=== PATIENT | female | born 1975 | race Caucasian/White ===

== ENCOUNTER 2024-10-06 08:09 | Emergency (ER) | payer OTHER, SELFPAY ==
--- NOTE | 2024-10-06 08:20 | ED_ITS ---
HPI - URI/Sore Throat General Chief Complaint: Upper Respiratory Infection Stated Complaint: sorethroat, bodyaches Time Seen by Provider: 10/06/24 08:19 Source: patient Mode of arrival: ambulatory Limitations: no limitations History of Present Illness HPI Narrative: Mee is a 49-year-old female patient presenting to the clinic today with complaints of sore throat, runny nose, and body aches since last night. She reports has had exposure to RSV and influenza. Denies any fevers but has had some chills. Denies any chest pain or shortness of breath. MD elicited complaint: sore throat, rhinorrhea and other Related Data Home Medications ?Medication ?Instructions ?Recorded ?Confirmed ?Last Taken ?Type fluoxetine 20 mg capsule mg 10/06/24 Unknown History propranolol 40 mg tablet mg 10/06/24 Unknown History Allergies Allergy/AdvReac Type Severity Reaction Status Date / Time vanilla extract flavor Allergy Intermediate Swelling Verified 10/06/24 08:39 of Lip/Tongue/Throat Review of Systems Review of Systems: Pertinent positives per HPI. Patient denies any fever, chills, rash, headache, visual changes, dizziness, cough, shortness of breath, chest pain, palpitations, nausea, vomiting, diarrhea, constipation, abdominal pain, or any urinary issues. PMFSH Comments At the time of my signature, I reviewed and agree with the nursing past medical, surgical, social, and family history. There is no relevant family history pertinent to the patient complaint. Exam Narrative: General: Well-developed, obese, in no apparent distress Head: Normocephalic, atraumatic Eyes: Pupils equally round and reactive to light bilaterally, EOM intact, sclera and conjunctive clear, no discharge, lids normal Ears: TMs intact and clear, ear canals clear, no drainage, grossly hearing normal. Nose: Nares patent, clear discharge, no inflammation, no sinus tenderness. Mouth: Oral pharynx mildly red without lesions or masses, good dentition, MMM. Postnasal drip Neck: Supple, trachea midline, no enlargement of anterior or posterior cervical nodes, no thyroid masses or goiter palpable. Cardio: Regular rate and rhythm, s1 and s2 normal, no murmur appreciated. Resp: Clear to auscultation bilaterally, no rhonchi, rales, wheezing or rubs Course Course Emergency Course: Portions of this record may have been created with voice recognition software. Level of Care: Express Care Visit Vital Signs Vital signs: Vital signs reviewed MDM - URI/Sore Throat MDM Narrative Medical decision making narrative: At the time of visit patient is resting comfortably on the exam table. Patient appears to be nontoxic. Labs: COVID, influenza, and strep test all performed. All testing was negative. We will send strep for culture. Plan: I suspect patient has URI/pharyngitis. Her symptoms just started last night. Discussed that it may be too early for her testing to be-positive due to the symptoms starting last night. Supportive measures were discussed with the patient and they voiced understanding discharge instructions and agrees to treatment plan. Return precautions reviewed Differential Diagnosis Differential diagnosis: Likely upper respiratory infection, otitis media, sinusitis, viral infection, bronchitis, influenza, pharyngitis and other (COVID) Discharge Plan Discharge Clinical Impression: Pharyngitis Qualifiers: Pharyngitis/tonsillitis etiology: unspecified etiology Qualified Code(s): J02.9 - Acute pharyngitis, unspecified Upper respiratory infection Qualifiers: URI type: unspecified URI Qualified Code(s): J06.9 - Acute upper respiratory infection, unspecified Patient Disposition: Home, Self-Care Condition: Stable Instructions: Antibiotic Form, Pharyngitis (ED), Upper Respiratory Infection (ED) Additional Instructions: COVID, influenza, and strep test were all negative in the clinic today. We will send strep for culture and if this comes back positive we will contact you and place you on antibiotics at that time. Increase fluids and stay well hydrated Tylenol/motrin for pain/fever Flonase and OTC antihistamines as directed Vicks vapor rub to open sinuses Sinus rinses for congestion Cepacol spray, cough drops, throat lozenges, warm tea with honey/lemon, gargle salt water to soothe throat BRAT diet for diarrhea Clear liquids x 24 hours then advance as tolerated for nausea/vomiting Go to the ED if you develop a worsening in your condition- high fever not controlled by Tylenol or Motrin, dehydration, weakness, lethargy, shortness of breath, or chest pain. Follow up with your PCP in 3-5 days if symptoms persist. Patient Language: [place] Prescriptions: No Action propranolol 40 mg tablet fluoxetine 20 mg capsule Follow-up/Referrals: Marvel,JULITO Sow [Primary Care Provider] - Time of Disposition: 08:48 Quality NIHSS Nursing Documentation ED NIHSS nursing documentation: reviewed/agree
[2024-10-06 08:38] VITALS: BP 117/74; PULSE 100; RESP 18; TEMP 37.1; O2SAT 97
[2024-10-06 08:51] LABS: EDSTREPNEGPOS1 Negative (Negative)
[2024-10-06 08:58] LABS: EDCOVIDSCREEN Negative (Negative); EDINFLUASCREEN Negative (Negative); EDINFLUBSCREEN Negative (Negative)
--- OUTSIDE RECORDS SUMMARY | 2024-10-08 16:05 | XMS_ITS | Data Portability ---
Author Organization [place] - [facility], Byron Reyes Address [address] [place] [address] Care Team Providers Care [employer] Worker Name Role Phone PAULA PIERSON Primary Care Provider Unavailabl e Assessment Encounter Date Assessment Date Assessment LastModified by Organization Details LastModified Time 05/05/2024 05/05/2024 Patient tolerate d treatment well today. Treatment Plan: It is recommended that the patient receive care professionals 2 times per month for 2 months receiving spinal adjustments, heat therapy, and manual therapy. If doing well at that time will move to monthly for 2 months. The patient will benefit from care professionals and supporting therapies to conservatively manage pain and help facilitate a return to max functional capability. The patient's progress is dependent on patient compliance regarding home therapies and following the recommended treatment plan. Prognosis: Good Co-Treatment: PCP: Paula Pierson MD MT: Referred back on 01/20/24 for Full Sp Tension PT: Referred for lower back stabilization on 01/20/24 Imaging: N/A Contraindications : None Patient Treatment Preference: Impulse to C/S Visit Count: 5/6 Not available 05/05/2024 09:54:53 05/21/2024 05/21/2024 Patient tolerate d treatment well today. Treatment Plan: It is recommended that the patient receive care professionals 1 time per 3 weeks for steadily decreasing frequency to monthly. Patient is to receive spinal adjustments and manual therapy. The patient will benefit from care professionals and supporting therapies to conservatively manage pain and help facilitate a return to max functional capability. The patient's progress is dependent on patient compliance regarding home therapies and following the recommended treatment plan. Prognosis: Good Co-Treatment: PCP: Paula Pierson MD MT: Referred back on 01/20/24 for Full Sp Tension PT: Referred for lower back stabilization on 01/20/24 Imaging: N/A Contraindications : None Patient Treatment Preference: Impulse to C/S Visit Count: 0 Not available 05/21/2024 09:51:03 06/11/2024 06/11/2024 Patient tolerate d treatment well today. Treatment Plan: It is recommended that the patient receive care professionals 1 time per 3 weeks for steadily decreasing frequency to monthly. Patient is to receive spinal adjustments and manual therapy. The patient will benefit from care professionals and supporting therapies to conservatively manage pain and help facilitate a return to max functional capability. The patient's progress is dependent on patient compliance regarding home therapies and following the recommended treatment plan. Prognosis: Good Co-Treatment: PCP: Paula Pierson MD MT: Referred back on 01/20/24 for Full Sp Tension PT: Referred for lower back stabilization on 01/20/24 Imaging: N/A Contraindications : None Patient Treatment Preference: Impulse to C/S Visit Count: 09/27 [email or web address] Not available 06/11/2024 09:54:47 07/02/2024 07/02/2024 Patient tolerate d treatment well today. Treatment Plan: It is recommended that the patient receive care professionals 2 times per 3 weeks due to injury on 06/27/24 lifting weights. Patient to receive spinal adjustments, manual therapy, and heat/IFC. The patient will benefit from care professionals and supporting therapies to conservatively manage pain and help facilitate a return to max functional capability. The patient's progress is dependent on patient compliance regarding home therapies and following the recommended treatment plan. Prognosis: Good Co-Treatment: PCP: Paula Pierson MD MT: Referred back on 01/20/24 for Full Sp Tension PT: Referred for lower back stabilization on 01/20/24 Imaging: N/A Contraindications : None Patient Treatment Preference: Impulse to C/S Visit Count: 0 [email or web address] Not available 07/02/2024 11:05:22 07/06/2024 07/06/2024 Patient tolerate d treatment well today. Treatment Plan: It is recommended that the patient receive care professionals 2 times per 3 weeks due to injury on 06/27/24 lifting weights. Patient to receive spinal adjustments, manual therapy, and heat/IFC. The patient will benefit from care professionals and supporting therapies to conservatively manage pain and help facilitate a return to max functional capability. The patient's progress is dependent on patient compliance regarding home therapies and following the recommended treatment plan. Prognosis: Good Co-Treatment: PCP: Paula Pierson MD MT: Referred back on 01/20/24 for Full Sp Tension PT: Referred for lower back stabilization on 01/20/24 Imaging: N/A Contraindications : None Patient Treatment Preference: Impulse to C/S Visit Count: 09/21 [email or web address] Not available 07/06/2024 16:42:47 Plan of Treatment Reminders Order Date Submit Date Provider Last Modified By Organization Details Last Modified Time Details Appointments InPerson ; PE, Routine 2024 10:00A M Paula Pierson MD Not available Not available Not available Lab None recorded . Referral None recorded . Procedures None recorded . Surgeries None recorded . Imaging None recorded . Medication Orders None recorded . Patient Targets Encounter Date Encounter Id Patient Goals Patient Target Last Modified By Organization Details Last Modified Time 05/05/2024 [id number] terminologist goal of HEP Compliance Compliance with HEP provided by DC. Compliance with presenting for care as recommended by DC Not available Not available Not available terminologist goal of Pain Not available Not available Not available Pain Decrease LBP by 50% by next eval. Not available Not available Not available 05/21/2024 [id number] terminologist goal of HEP Compliance Compliance with HEP provided by DC. Compliance with presenting for care as recommended by DC Not available Not available Not available Pain Decrease LBP by 50% by next eval. Not available Not available Not available 06/11/2024 [id number] [facility] goal of HEP Compliance Compliance with HEP provided by DC. Compliance with presenting for care as recommended by DC Not available Not available Not available Pain Decrease LBP by 50% by next eval. Not available Not available Not available 07/02/2024 [id number] [facility] goal of HEP Compliance Compliance with HEP provided by DC. Compliance with presenting for care as recommended by DC Not available Not available Not available Pain Decrease LBP by 50% by next eval. Not available Not available Not available [facility] goal of Modified Oswestry Back Index (TESSA): Score on the Modified Oswestry Low Back Disability Index (TESSA) Decrease TESSA raw score to 10 or lower following injury on 06/27/24 Not available Not available Not available 07/06/2024 [id number] [facility] goal of HEP Compliance Compliance with HEP provided by DC. Compliance with presenting for care as recommended by DC Not available Not available Not available Pain Decrease LBP by 50% by next eval. Not available Not available Not available [facility] goal of Modified Oswestry Back Index (TESSA): Score on the Modified Oswestry Low Back Disability Index (TESSA) Decrease TESSA raw score to 10 or lower following injury on 06/27/24 Not available Not available Not available Patient Instructions Encounter Date Encounter Id Patient Instructions Last Modified By Organization Details Last Modified Time 05/05/2024 [id number] Access Code: [email or web address] URL: [email or web address] Date: 12/26/2023 Prepared by: Michele Terrell Exercises - Supine Single Knee to Chest Stretch - 5 x daily - 7 x weekly - 15-20secs hold - Supine Double Knee to Chest - 5 x daily - 7 x weekly - 15-20secs hold - Seated Flexion Stretch - 5 x daily - 7 x weekly - 15-20secs hold - Standing Forward Trunk Flexion - 5 x daily - 7 x weekly - 15-20secs hold - Supine Hamstring Stretch with Doorway - 5 x daily - 7 x weekly - 15-20secs hold - Standing Quadratus Lumborum Stretch with Doorway - 5 x daily - 7 x weekly - 15-20 hold Patient Education - Acute L/S Handout ? Ice up to 20 minutes at a time each with at least a 40-minute break in between. Place upon low back area with cloth between skin and pack. ? Avoid sitting or standing still for over 30 minutes at a time. ? Take time to walk around every 30 minutes ? When sitting avoid soft couches/recliners ? Perform Cat/Camel Exercises 10 reps 3x per day [email or web address] Not available 05/05/2024 09:31:07 05/21/2024 [id number] Access Code: [email or web address] URL: [email or web address] Date: 12/26/2023 Prepared by: Michele Terrell Exercises - Supine Single Knee to Chest Stretch - 5 x daily - 7 x weekly - 15-20secs hold - Supine Double Knee to Chest - 5 x daily - 7 x weekly - 15-20secs hold - Seated Flexion Stretch - 5 x daily - 7 x weekly - 15-20secs hold - Standing Forward Trunk Flexion - 5 x daily - 7 x weekly - 15-20secs hold - Supine Hamstring Stretch with Doorway - 5 x daily - 7 x weekly - 15-20secs hold - Standing Quadratus Lumborum Stretch with Doorway - 5 x daily - 7 x weekly - 15-20 hold Patient Education - Acute L/S Handout ? Ice up to 20 minutes at a time each with at least a 40-minute break in between. Place upon low back area with cloth between skin and pack. ? Avoid sitting or standing still for over 30 minutes at a time. ? Take time to walk around every 30 minutes ? When sitting avoid soft couches/recliners ? Perform Cat/Camel Exercises 10 reps 3x per day [email or web address] Not available 05/21/2024 09:33:34 06/11/2024 [id number] Access Code: [email or web address] URL: [email or web address] Date: 12/26/2023 Prepared by: Michele Terrell Exercises - Supine Single Knee to Chest Stretch - 5 x daily - 7 x weekly - 15-20secs hold - Supine Double Knee to Chest - 5 x daily - 7 x weekly - 15-20secs hold - Seated Flexion Stretch - 5 x daily - 7 x weekly - 15-20secs hold - Standing Forward Trunk Flexion - 5 x daily - 7 x weekly - 15-20secs hold - Supine Hamstring Stretch with Doorway - 5 x daily - 7 x weekly - 15-20secs hold - Standing Quadratus Lumborum Stretch with Doorway - 5 x daily - 7 x weekly - 15-20 hold Patient Education - Acute L/S Handout ? Ice up to 20 minutes at a time each with at least a 40-minute break in between. Place upon low back area with cloth between skin and pack. ? Avoid sitting or standing still for over 30 minutes at a time. ? Take time to walk around every 30 minutes ? When sitting avoid soft couches/recliners ? Perform Cat/Camel Exercises 10 reps 3x per day [email or web address] Not available 06/11/2024 09:33:17 07/02/2024 [id number] Access Code: [email or web address] URL: [email or web address] Date: 12/26/2023 Prepared by: Michele Terrell Exercises - Supine Single Knee to Chest Stretch - 5 x daily - 7 x weekly - 15-20secs hold - Supine Double Knee to Chest - 5 x daily - 7 x weekly - 15-20secs hold - Seated Flexion Stretch - 5 x daily - 7 x weekly - 15-20secs hold - Standing Forward Trunk Flexion - 5 x daily - 7 x weekly - 15-20secs hold - Supine Hamstring Stretch with Doorway - 5 x daily - 7 x weekly - 15-20secs hold - Standing Quadratus Lumborum Stretch with Doorway - 5 x daily - 7 x weekly - 15-20 hold Patient Education - Acute L/S Handout ? Ice up to 20 minutes at a time each with at least a 40-minute break in between. Place upon low back area with cloth between skin and pack. ? Avoid sitting or standing still for over 30 minutes at a time. ? Take time to walk around every 30 minutes ? When sitting avoid soft couches/recliners ? Perform Cat/Camel Exercises 10 reps 3x per day [email or web address] Not available 07/02/2024 09:49:07 07/06/2024 [id number] Access Code: [email or web address] URL: [email or web address] Date: 12/26/2023 Prepared by: Michele Terrell Exercises - Supine Single Knee to Chest Stretch - 5 x daily - 7 x weekly - 15-20secs hold - Supine Double Knee to Chest - 5 x daily - 7 x weekly - 15-20secs hold - Seated Flexion Stretch - 5 x daily - 7 x weekly - 15-20secs hold - Standing Forward Trunk Flexion - 5 x daily - 7 x weekly - 15-20secs hold - Supine Hamstring Stretch with Doorway - 5 x daily - 7 x weekly - 15-20secs hold - Standing Quadratus Lumborum Stretch with Doorway - 5 x daily - 7 x weekly - 15-20 hold Patient Education - Acute L/S Handout ? Ice up to 20 minutes at a time each with at least a 40-minute break in between. Place upon low back area with cloth between skin and pack. ? Avoid sitting or standing still for over 30 minutes at a time. ? Take time to walk around every 30 minutes ? When sitting avoid soft couches/recliners ? Perform Cat/Camel Exercises 10 reps 3x per day [email or web address] Not available 07/06/2024 14:50:03 Reason for Referral None Reported. Problems Name Problem SNOMED Code Status Onset Date Resolution Date Notes Provider Name and Address Organization Details Recorded Time Abnormal cervical Papanico laou smear [id number] Rico Pierson MD [address], [place], [address] , [place] [facility] 4 13:26:11 Pain in elbow [id number] Rico Pierson MD [address], [place], [address] , [place] [facility] 4 13:26:19 Generali zed anxiety disorder [id number] Rico Pierson MD [address], [place], [address] , [place] [facility] 4 13:26:28 Gastroes ophageal reflux disease without esophagi tis [id number] Rico Pierson MD [address], [place], [address] , [place] [facility] 4 13:26:37 Herpes simplex [id number] Rico Pierson MD [address], [place], [address] , [place] [facility] 4 13:26:44 [facility] hyperten prisca [id number] Rico Pierson MD [address], [place], [address] , [place] [facility] 4 13:26:51 Chronic back pain [id number] Rico Pierson MD [address], [place], [address] , [place] [facility] 4 13:27:49 Pain in right hip joint [id number] 9102 Rico Pierson MD [address], [place], [address] , [place] [facility] 4 13:27:59 History of augmenta tion of breast [id number] Rico Pierson MD [address], [place], [address] , [place] [facility] 4 13:28:13 Allergic rhinitis 55683220 Active Paula Pierson MD [address], [place], [address] , [place] - [facility] 4 13:33:34 Migraine 70682526 Active Paula Pierson MD [address], [place], [address] , [place] - [facility] 4 13:33:41 Low back pain 904003885 Active 2023 MICHELE TERRELL DC [address], [place], [address] , [place] - [facility] 4 12:07:53 Cervical segmenta l dysfunct ion 995653444 Active 2023 MICHELE TERRELL DC [address], [place], [address] , [place] - [facility] 4 13:59:10 Thoracic segmenta l dysfunct ion 635248541 Active 2023 MICHELE TERRELL DC [address], [place], [address] , [place] - [facility] 4 13:59:14 Segmenta l and somatic dysfunct ion 117562321 Active 2022 Segmenta l and somatic dysfunct ion; PROBABIL ITY: 0 Confir mation: Confirme d Annota tedDispl ay: Segmenta l and somatic dysfunct ion of lumbar region C lassific ation: Medical Not Available [facility] 4 17:35:23 Adjustme nt disorder with anxious mood 72632600 Completed 201901/02/2024 Adjustme nt disorder with anxious mood; PROBABIL ITY: 0 SENSIT IVITY: 0.0 Conf irmation : Confirme d cancel Reason: Annotat edDispla y: Adjustme nt disorder with anxiety Classifi cation: Medical [facility] eDateTim e: 15:07:57 +00:00 Not Available [facility] 4 17:35:23 Elbow joint pain 265733900 Completed 202201/02/2024 Elbow joint pain; PROBABIL ITY: 0 Confir mation: Confirme d Annota tedDispl ay: Bilatera l elbow joint pain Cla ssificat ion: Medical Not Available [facility] 4 17:35:24 Pain in thoracic spine 765689180 Active 2022 Pain in thoracic spine; PROBABIL ITY: 0 SENSIT IVITY: 0.0 Conf irmation : Confirme d Annota tedDispl ay: Thoracic spine pain Cla ssificat ion: Medical Lif[facility] eDateTim e: 15:39:00 +00:00 Not Available [facility] 4 17:35:24 Augmenta tion mammopla sty Completed 202101/02/2024 Breast augmenta tion; PROBABIL ITY: 0 Confir mation: Confirme d Annota tedDispl ay: Breast augmenta tion Cla ssificat ion: Medical Not Available [facility] 4 17:35:24 [place] ht [id number] Completed 202001/02/2024 Overweig ht; PROBABIL ITY: 0 SENSIT IVITY: 0.0 Conf irmation : Confirme d cancel Reason: Annotat edDispla y: [place] ht Class ificatio n: Medical Lif[facility] eDateTim e: 14:57:53 +00:00 Not Available [facility] 4 17:35:24 Neck pain 54077349 Active 2022 Neck pain; PROBABIL ITY: 0 SENSIT IVITY: 0.0 Conf irmation : Confirme d Annota tedDispl ay: Cervical saray Clas sificati on: Medical [facility] eDateTim e: 15:39:00 +00:00 Not Available [facility] 4 17:35:24 Obesity 790187474 Active 2018 Obesity; PROBABIL ITY: 0 Confir mation: Probable Annotat edDispla y: Obesity Classifi cation: Medical Lifec[facility] eDateTim e: 17:00:00 +00:00 Not Available [facility] 4 17:35:24 Segmenta l dysfunct ion 87881467 Active 2022 Segmenta l dysfunct ion; PROBABIL ITY: 0 SENSIT IVITY: 0.0 Conf irmation : Confirme d Annota tedDispl ay: Segmenta l dysfunct ion of pelvic region C lassific ation: Medical Lifecycl [facility] e: 15:39:00 +00:00 Not Available [facility] 4 17:35:24 Body odor problem [id number] Completed 202201/02/2024 Body odor problem; PROBABIL ITY: 0 SENSIT IVITY: 0.0 Conf irmation : Confirme d Annota tedDispl ay: Body odor Cla ssificat ion: Medical [facility] e: 14:04:47 +00:00 Not Available [facility] 4 17:35:25 Gastroes ophageal reflux disease 839983884 Completed 202001/02/2024 GERD - Gastro-e sophagea l reflux disease; PROBABIL ITY: 0 Confir mation: Confirme d Annota tedDispl ay: GERD - Gastro-e sophagea l reflux disease Classifi cation: Medical Gastroes ophageal reflux disease; PROBABIL ITY: 0 SENSIT IVITY: 0.0 Conf irmation : Confirme d Annota tedDispl ay: GERD (gastroe sophagea l reflux disease) Classif ication: Medical Lifec[facility] e: 22:57:00 +00:00; Start Date : 09/01/20 19 Not Available [facility] 4 17:35:25 Absence Completed 201801/02/2024 None; PROBABIL ITY: 0 Confir mation: Confirme d Annota tedDispl ay: None Cla ssificat ion: Medical Not Available [facility] 4 17:35:25 Anxiety 08484353 Completed 202001/02/2024 Anxiety; PROBABIL ITY: 0 Confir mation: Confirme d Annota tedDispl ay: Anxiety Classifi cation: Medical Not Available [facility] 4 17:35:25 Low back pain 044257651 Completed 202201/02/2024 Low back pain; PROBABIL ITY: 0 Confir mation: Confirme d Annota tedDispl ay: Low back pain Cla ssificat ion: Medical Lifecycl eDateTim e: 17:00:00 +00:00 Not Available [facility] 4 17:35:25 Foreign body in heel 801330437 Active 2022 Foreign body in heel; PROBABIL ITY: 0 SENSIT IVITY: 0.0 Conf irmation : Confirme d Annota tedDispl ay: Foreign body in heel Cla ssificat ion: Medical Lifecycl eDateTim e: 19:11:00 +00:00 Not Available [facility] 4 17:35:26 Hyperten sive disorder 87983243 Active 2022 Hyperten sive disorder ; PROBABIL ITY: 0 SENSIT IVITY: 0.0 Conf irmation : Confirme d Annota tedDispl ay: Hyperten prisca Cla ssificat ion: Medical Lifecycl eDateTim e: 21:51:00 +00:00 H ypertens ion; PROBABIL ITY: 0 Confir mation: Confirme d Annota tedDispl ay: Hyperten prisca Cla ssificat ion: Medical; Start Date : 11/17/19 Not Available [facility] 4 17:35:26 Chronic low back pain 113934688 Active 2023 Chary Hardin [facility] [address], [place], [address] , [place] [facility] 4 10:23:48 Chronic thoracic back pain [id number] 9103 Active 2023 Chary Hardin [facility] [address], [place], [address] , [place] [facility] 4 10:24:22 Problem Notes None recorded. Procedures Surgical History Date Name Laterality Status Provider Name and Address Organization Details Recorded Time 07/02/20 Manual Therapy completed MICHELE TERRELL DC [address], [place], [address], formerly [facility] 07/02/2024 09:49:07 06/11/20 24 Manual Therapy completed MICHELE TERRELL DC [address], [place], [address], formerly [facility] 06/11/2024 09:33:17 06/11/20 24 [id number]: Chiropractic Manipulative Treatment (CMT) Spinal 3-4 regions completed MICHELE TERRELL DC [address], [place], [address], formerly [facility] 06/11/2024 09:33:17 05/21/20 24 Manual Therapy completed MICHELE TERRELL DC [address], [place], [address], formerly [facility] 05/21/2024 09:33:33 05/21/20 24 [id number]: Chiropractic Manipulative Treatment (CMT) Spinal 3-4 regions completed MICHELE TERRELL DC [address], [place], [address], formerly [facility] 05/21/2024 09:33:33 05/05/20 24 Manual Therapy completed MICHELE TERRELL DC [address], [place], [address], formerly [facility] 05/05/2024 09:31:06 05/05/20 24 [id number]: Chiropractic Manipulative Treatment (CMT) Spinal 3-4 regions completed MICHELE TERRELL DC [address], [place], [address], formerly [facility] 05/05/2024 09:54:48 04/21/20 24 [id number]: Massage completed Chary Hardin MT [address], [place], [address], formerly [facility] 04/21/2024 14:26:56 04/20/20 24 Manual Therapy completed MICHELE TERRELL DC [address], [place], [address], formerly [facility] 04/20/2024 09:37:22 04/20/20 24 [id number]: Chiropractic Manipulative Treatment (CMT) Spinal 3-4 regions completed MICHELE TERRELL DC [address], [place], [address], formerly [facility] 04/20/2024 09:37:22 03/18/20 24 Manual Therapy cancelled MICHELE TERRELL DC [address], [place], [address], [place] [facility] 03/18/2024 08:54:51 03/18/20 24 [id number]: Chiropractic Manipulative Treatment (CMT) Spinal 3-4 regions cancelled MICHELE TERRELL DC [address], [place], [address], [place] [facility] 03/18/2024 08:54:51 03/04/20 24 Manual Therapy completed MICHELE TERRELL DC [address], [place], [address], [place] [facility] 03/04/2024 10:04:07 03/04/20 24 [id number]: Chiropractic Manipulative Treatment (CMT) Spinal 3-4 regions completed MICHELE TERRELL DC [address], [place], [address], [place] [facility] 03/04/2024 10:04:07 02/19/20 24 Manual Therapy completed MICHELE TERRELL DC [address], [place], [address], [place] [facility] 02/19/2024 10:07:55 02/19/20 24 [id number]: Chiropractic Manipulative Treatment (CMT) Spinal 3-4 regions completed MICHELE TERRELL DC [address], [place], [address], [place] [facility] 02/19/2024 10:07:55 02/04/20 24 Manual Therapy completed MICHELE TERRELL DC [address], [place], [address], [place] [facility] 02/04/2024 10:02:50 02/04/20 24 [id number]: Chiropractic Manipulative Treatment (CMT) Spinal 3-4 regions completed MICHELE TERRELL DC [address], [place], [address], [place] [facility] 02/04/2024 10:02:50 01/24/20 24 [id number]: Massage completed Chary Hardin [place] [address], [place], [address], [place] [facility] 01/24/2024 10:23:33 01/20/20 24 Manual Therapy completed MICHELE TERRELL DC [address], [place], [address], [place] [facility] 01/20/2024 10:57:31 01/20/20 24 [id number]: Hot or Cold Pack completed MICHELE TERRELL DC [address], [place], [address], formerly [facility] 01/20/2024 11:30:27 01/20/20 24 [id number]: Chiropractic Manipulative Treatment (CMT) Spinal 3-4 regions completed MICHELE TERRELL DC [address], [place], [address], [place] [facility] 01/20/2024 11:07:47 01/13/20 24 Manual Therapy completed MICHELE TERRELL DC [address], [place], [address], formerly [facility] 01/13/2024 11:32:06 01/13/20 24 [id number]: Chiropractic Manipulative Treatment (CMT) Spinal 3-4 regions completed MICHELE TERRELL DC [address], [place], [address], formerly [facility] 01/13/2024 11:32:06 01/09/20 24 Manual Therapy completed MICHELE TERRELL DC [address], [place], [address], [place] [facility] [facility] 01/09/2024 09:46:12 01/09/20 24 [id number]: Chiropractic Manipulative Treatment (CMT) Spinal 3-4 regions completed MICHELE TERRELL DC [address], [place], [address], formerly [facility] 01/09/2024 09:46:12 01/06/20 24 Manual Therapy completed MICHELE TERRELL DC [address], [place], [address], [place] [facility] 01/06/2024 11:32:20 01/06/20 24 [id number]: Hot or Cold Pack completed MICHELE TERRELL DC [address], [place], [address], formerly [facility] 01/06/2024 11:32:20 01/06/20 24 [id number]: Chiropractic Manipulative Treatment (CMT) Spinal 3-4 regions completed MICHELE TERRELL DC [address], [place], [address], formerly [facility] 01/06/2024 11:32:20 01/02/20 24 Manual Therapy completed MICHELE TERRELL DC [address], [place], [address], formerly [facility] 01/02/2024 11:55:36 01/02/20 24 [id number]: Hot or Cold Pack completed MICHELE TERRELL DC [address], [place], [address], formerly [facility] 01/02/2024 11:37:56 01/02/20 24 [id number]: Electrical Stimulation (unattended) completed MICHELE TERRELL DC [address], [place], [address], formerly [facility] 01/02/2024 11:32:13 01/02/20 24 [id number]: Chiropractic Manipulative Treatment (CMT) Spinal 3-4 regions completed MICHELE TERRELL DC [address], [place], [address], formerly [facility] 01/02/2024 11:32:13 12/30/19 24 Manual Therapy completed MICHELE TERRELL DC [address], [place], [address], formerly [facility] 12/30/2023 11:33:14 12/30/19 24 [id number]: Hot or Cold Pack completed MICHELE TERRELL DC [address], [place], [address], formerly [facility] 12/30/2023 11:33:14 12/30/19 24 [id number]: Electrical Stimulation (unattended) completed MICHELE TERRELL DC [address], [place], [address], formerly [facility] 12/30/2023 11:33:14 12/30/19 24 [id number]: Chiropractic Manipulative Treatment (CMT) Spinal 3-4 regions completed MICHELE TERRELL DC [address], [place], [address], formerly [facility] 12/30/2023 11:33:14 12/26/19 24 Manual Therapy completed MICHELE TERRELL DC [address], [place], [address], formerly [facility] 12/26/2023 12:36:57 12/26/19 24 [id number]: Hot or Cold Pack completed MICHELE TERRELL DC [address], [place], [address], formerly [facility] 12/26/2023 12:36:18 12/26/19 24 [id number]: Electrical Stimulation (unattended) completed MICHELE TERRELL DC [address], [place], [address], formerly [facility] 12/26/2023 12:36:29 12/26/19 24 [id number]: Chiropractic Manipulative Treatment (CMT) Spinal 3-4 regions completed MICHELE TERRELL DC [address], [place], [address], formerly [facility] 12/26/2023 12:36:42 Imaging Results None recorded. Procedure Notes None recorded. Medical Equipment None Reported. Allergies Allergen ID Allergen Name Allergen Category Reaction Reaction Severity Criticality Documentation Date Start Date Code Code System Note Provider Name and Address Organization Details Recorded Time 328630 No Allergy Informati on Available Not available Not available Not available Not available 01/02/2024 37465 UNK Comme nt: React ion Class : Aller gy; Not Available [facility] 18:48:29 Medications Name Sig Start Date Stop Date Status Note LastModified by Organization Details LastModified Time celecoxib 200 mg capsule TAKE 1 CAPSULE BY MOUTH TWICE DAILY 11/25 completed Not Available Not Available Not Available buspirone 5 mg tablet active Not Available Not Available Not Available cefuroxim e axetil 250 mg tablet TAKE 1 TABLET BY MOUTH TWICE DAILY UNTIL ALL TAKEN 11/25 completed Not Available Not Available Not Available cetirizin e 10 mg tablet Take 1 tablet every day by oral route. 10/16 completed Not Available Not Available Not Available sumatript an 50 mg tablet TAKE 1 TABLET (50 MG) BY ORAL ROUTE AFTER ONSET OF MIGRAINE ; MAY REPEAT AFTER 2 HOURS IF HEADACHE RETURNS, NOT TO EXCEED 200MG IN 24HRS active Not Available Not Available No t Available melatonin 3 mg tablet 1 tab(s) Oral hs 05/18 completed Disconti nueDate: 05/18/2020 10:02:19 AM Disco ntinueTy pe: User Manual DC StopT ype: Physicia n Stop Rufus Jacobtif icationN umber: [id number] T otalRefi lls: 3 Consta ntIndica tor: Yes acti ve_statu s_dt_tm: 0 2:12:17 PM Not Available Not Available Not Available acyclovir 400 mg tablet 1 tab(s) Oral 5x/day,x 5 days 09/22 completed Duration : 5 Durati onUnit: days Sto pType: Physicia n Stop [facility]ufus [facility]: [id number] T otalRefi lls: 6 Consta ntIndica tor: Yes CSAS chedule: 0 active _status_ dt_tm: 9 5:26:50 PM Not Available Not Available Not Available Tamiflu 75 mg capsule 1 cap(s) Oral bid,x5 days 11/15 completed Duration : 5 Durati onUnit: days Sto pType: Physicia n Stop Rufus Tatyanaalice barrow neurological instituteGenevieve umber: [id number] S cheduled PRN: No Total Refills: 0 Consta ntIndica tor: Yes CSAS chedule: 0 active _status_ dt_tm: 0 5:03:23 PM Not Available Not Available Not Available sulfameth oxazole 800 mg-trimet hoprim 160 mg tablet 1 tab(s) Oral bid,x3 days 08/26 completed Duration : 3 Durati onUnit: day(s) S topType: Physicia n Stop Rufus [facility]: [id number] S cheduled PRN: No Total Refills: 0 Consta ntIndica tor: Yes CSAS chedule: 0 active _status_ dt_tm: 1 1:25:41 PM Not Available Not Available Not Available oxycodone -acetamin ophen 5 mg-325 mg tablet TAKE 1 TABLET BY MOUTH EVERY 4 HOURS NEEDED FOR PAIN 11/25 completed Not Available Not Available Not Available propranol ol 40 mg tablet TAKE ONE TABLET BY MOUTH TWICE DAILY 2023 active Not Available Not Available Not Avai lable fluoxetin e 20 mg tablet Take 1 tablet every day by oral route for 90 days. 2023 active Not Available Not Available Not Avai lable fluoxetin e 10 mg capsule 1 cap(s) Oral daily 10/28 completed Disconti nueDate: 0 4:56:56 PM Disco ntinueTy pe: User Manual DC StopT ype: Physicia n Stop Rufus gIdentif icationN umber: [id number] S cheduled PRN: No Total Refills: 6 Consta ntIndica tor: Yes CSAS chedule: 0 active _status_ dt_tm: 0 2:14:05 PM Not Available Not Available Not Available omeprazol e 20 mg capsule,d elayed release TAKE ONE CAPSULE BY MOUTH TWICE DAILY 10/23 completed StopType : Physicia n Stop Rufus gIdentif icationN umber: [id number] C SASchedu le: 0 active _status_ dt_tm: 1 8:13:27 AM Not Available Not Available Not Available hydrocort isone 2.5 % topical cream 1 appl Topical tid 11/25 completed Not Available Not Available Not Available estradiol 0.01% (0.1 mg/gram) vaginal cream Apply a small amount to vagina 2-3 times per week active Not Available Not Available No t Available propranol ol 20 mg tablet 1 tab(s) Oral tid 11/16 completed Disconti nueDate: 11/16/2020 9:47:00 AM Disco ntinueTy pe: User Manual DC StopT ype: Physicia n Stop Rufus gIdentif icationN umber: [id number] S cheduled PRN: No Total Refills: 3 Consta ntIndica tor: Yes CSAS chedule: 0 active _status_ dt_tm: 05/18/2020 10:02:04 AM Not Available Not Available Not Available fluoxetin e 20 mg capsule 1 cap(s) Oral daily,x9 0 days active Not Available Not Available No t Available diazepam 5 mg tablet TAKE 1 TABLET BY MOUTH THREE TIMES DAILY NEEDED FOR MUSCLE SPASM 11/25 completed Not Available Not Available Not Available Mucinex 600 mg tablet, extended release 1 tab(s) Oral bid 05/18 completed Disconti nueDate: 05/18/2020 10:02:19 AM Disco David pe: User Manual DC StopT ype: Physicia n Stop Rufus monzonGenevieve umber: [id number] T otalRefi lls: 0 Consta ntIndica tor: Yes CSAS chedule: 0 active _status_ dt_tm: 0 5:03:23 PM Not Available Not Available Not Available cyclobenz aprine 5 mg tablet TAKE 1 TO 2 TABLETS BY MOUTH TWICE A DAY NEEDED FOR BACK SPASM. MAY CAUSE DROWSINE SS active Not Available Not Available No t Available Allergy Relief (fluticas one) 50 mcg/actua tion nasal spray,katy pension SPRAY 1 - 2 SPRAYS (50 - 100 MCG) IN EACH NOSTRIL BY INTRANAS AL ROUTEONC E DAILY NEEDED active Not Available Not Available No t Available COVID-19 vac,mRNA( 6 mo-5 yr)(Moder na)(PF)25 mcg/0.25 mL IM susp(EUA) 03/22 completed StopType : Physicia n Stop Rufus Jacobrocael phil[facility]christ[facility] hospitalGenevieve umber: [id number] S cheduled PRN: No NextD oseDate: 03/22/2021 3:50:00 PM Const antIndic ator: No activ e_status _dt_tm: 03/22/2021 3:50:24 PM Not Available Not Available Not Available Vitals Date Recorded Body height Provider Name an d Address Organization Details Last Updated DateTime 05/21/2024 157.48 cm Rosemarie Valdes [place] [facility] 05/21 09:31:35 Date Recorded Heart rate Provider Name an d Address Organization Details Last Updated DateTime 05/21/2024 85 /min Rosemarie Valdes [place] [facility] 05/21 09:31:49 Date Recorded Oxygen saturation Oxygen saturation in Arterial blood by Pulse oximetry Provider Name and Address Organization Details Last Updated DateTime 05/21/2024 98 % 98 % Rosemarie Valdes [place] [facility] 05/21/2024 09:31:50 Date Recorded Body temperature Provider Name a nd Address Organization Details Last Updated DateTime 05/21/2024 98 [degF] Rosemarie Valdes [place] [facility] 05/21 09:31:53 Date Recorded Systolic blood pressure Diastolic blood pressure Provider Name and Address Organization Details Last Updated DateTime 05/21/2024 130 mm[Hg] 82 mm[Hg] Rosemarie Valdes [place] [facility] 05/21/2024 09:31:47 Social History Question Answer Notes LastModified by Organizat ion Details LastModified Time Tobacco Smoking Status Former Smoker Alanis friend [place] [facility] 10/16/2023 10:16:48 What Is Your Level Of Alcohol Consumption? Occasional [email or web address] Information not available 11/26/2023 In The 14 Days Before Symptom Onset, Have You Had Close Contact With A Laboratory-con firmed COVID-19 While That Case Was Ill? No Information not available 10/16/2023 Have You Been To An Area Known To Be High Risk For COVID-19? No Information not available 10/16/2023 How Many Years Have You Smoked Tobacco? 2 Information not available 10/16/2023 Sex: Unknown Functional Status None recorded. Mental Status None recorded. Family History Relationship Description Onset Age of this Age Resolved Age Notes LastModified by Organization Details LastModified Time Father Malignant neoplastic disease [email or web address] Not available 2023 13:30:23 Father Essential hypertension [email or web address] Not available 10:08:43 Mother Type 2 diabetes mellitus [email or web address] Not available 10/16 10:08:43 Mother Heart disease ttrost Not available 2023 13:30:51 Notes:Father: Cancer, HTN - Hypertension Mother: Heart disease, Hypotension, Diabetes mellitus type II Medical History No medical history recorded. Gynecological HistoryNo gynecological history recorded. Obstetrics History GPAL:G 0 P 0 0 0 0 Immunizations Vaccine Type Date Status Note Provider Nam e and Address Organization Details Recorded Time SARS-COV-2 (COVID-19) vaccine, UNSPECIFIED 1 completed Not Available [facility] 01/02/2024 18:21:56 SARS-COV-2 (COVID-19) vaccine, UNSPECIFIED 1 completed Not Available [facility] 01/02/2024 18:21:56 influenza, unspecified formulation 1 completed Not Available [facility] 01/02/2024 18:21:56 Past Encounters Encounter ID Performer Location Encounter Start Date Encounter Closed Date Diagnosis/Indication Diagnosis SNOMED-CT Code Diagnosis ICD10 Code Diagnosis Note [id number] MD Magdiel Portillo [address] [place] [address] 10/16/2023 10:08:18 10/18/2023 13:04:30 Essential hypertension 38435429 I10 diastolic remains high. Continue propranolo l and refer for health coaching Generalize d anxiety disorder 39224092 F41.1 She is using exercise and meditation as non-pharma cologic methods - commended use of these. Can consider a different SSRI if needed, but she would like to avoid for now F/u in summer for physical, sooner if needed Insomnia 222395348 G47.0 0 Related to anxiety. We discussed medication options of melatonin and hydroxyzin e. Will start with melatonin. Also discussed sleep hygeine. Recommende d avoidance of alprazolam [id number] MD Magdiel Portillo s [address] [place] [address] 11/26/2023 09:30:00 11/27/2023 11:44:36 Essential hypertension 72161213 I10 diastolic remains high, does not tolerate higher doses of propranolo l and it's also not giving secondary benefits on anxiety. Consider medication change, but does not want too many changes today. Insomnia 046250529 G47.0 0 NOT DISCUSSED TODAY.Rela james to anxiety. We discussed medication options of melatonin and hydroxyzin e. Will start with melatonin. Also discussed sleep hygeine. Recommende d avoidance of alprazolam Generalize d anxiety disorder 41642533 F41.1 NOT DISCUSSED TODAYShe is using exercise and meditation as non-pharma cologic methods - commended use of these. Can consider a different SSRI if needed, but she would like to avoid for now F/u in 6-8 weeks for all of the above. Menopause 947354500 N95. 1 Classic symptoms. S/p hysterecto my. Discussed options including HRT, SSRI, supplement s/herbals, watchful waiting. She would like to avoid HRT but is interested in SSRI. Has tolerated prozac in the past so will begin this with discussion of risk/benef it/side effect. [id number] MICHELE TER[place]LL [place] [address] 12/26/2023 11:33:01 12/26/2023 14:18:05 Low back pain 399893923 M54.50 Low back pain due to probable disc lesion on the right exacerbate d byo extended sitting at desk and [employer] lifts recently. Receiving chiro care and HEP from chiro. Will refer for MT and PT when indicated. Taking muscle relaxers from PCP (Silva). Cervical s egmental dysfunction 125796626 M99.01 Thoracic s egmental dysfunction 842966550 M99.02 [id number] MICHELE TERRELL DC Magdiel guadarrama [address] [place] [address] 12/30/2023 11:29:59 12/30/2023 11:57:06 Low back pain 397577802 M54.50 Low back pain due to probable disc lesion on the right exacerbate d byo extended sitting at desk and [place] lifts recently. Receiving chiro care and HEP from chiro. Will refer for MT and PT when indicated. Taking muscle relaxers from PCP (Silva). Cervical s egmental dysfunction 661023541 M99.01 Thoracic s egmental dysfunction 062844332 M99.02 [id number] MICHELE TERRELL DC Magdiel guadarrama [address] [place] [address] 01/02/2024 11:30:29 01/02/2024 12:01:29 Low back pain 576140230 M54.50 Low back pain due to probable disc lesion on the right exacerbate d byo extended sitting at desk and [place] lifts recently. Receiving chiro care and HEP from chiro. Will refer for MT and PT when indicated. Taking muscle relaxers from PCP (Silva). Cervical s egmental dysfunction 916020666 M99.01 Thoracic s egmental dysfunction 427046303 M99.02 [id number] MICHELE TERRELL DC Magdiel guadarrama [address] [place] [address] 01/06/2024 11:31:26 01/06/2024 11:55:31 Low back pain 914968181 M54.50 Low back pain due to probable disc lesion on the right exacerbate d byo extended sitting at desk and [place] lifts recently. Receiving chiro care and HEP from chiro. Will refer for MT and PT when indicated. Taking muscle relaxers from PCP (Silva). Cervical s egmental dysfunction 026741696 M99.01 Thoracic s egmental dysfunction 266556642 M99.02 [id number] MICHELE TERRELL [facility] s [address] [place] [address] 01/09/2024 09:44:36 01/09/2024 10:24:51 Low back pain 406753477 M54.50 Low back pain due to probable disc lesion on the right exacerbate d byo extended sitting at desk and [place] lifts recently. Receiving chiro care and HEP from chiro. Will refer for MT and PT when indicated. Taking muscle relaxers from PCP (Silva). Cervical s egmental dysfunction 547653631 M99.01 Thoracic s egmental dysfunction 912087711 M99.02 [id number] MICHELEDENISE TERRELL [facility] s [address] [place] [address] 01/13/2024 11:29:18 01/13/2024 11:44:40 Low back pain 336812120 M54.50 Low back pain due to probable disc lesion on the right exacerbate d byo extended sitting at desk and [place] lifts recently. Receiving chiro care and HEP from chiro. Will refer for MT and PT when indicated. Taking muscle relaxers from PCP (Silva). Cervical s egmental dysfunction 162603432 M99.01 Thoracic s egmental dysfunction 995931363 M99.02 [id number] [facility] s [address] [place] [address] 01/20/2024 10:44:46 01/20/2024 11:29:23 Low back pain 152799192 M54.50 Low back pain due to probable disc lesion on the right exacerbate d by extended sitting at desk and [place] lifts recently. Improving as expected via chiro care. Receiving chiro care and HEP from chiro. Referred to MT due to full spine paraspinal hypertonic ity. Referred to PT for L/S stabilizat ion on 01/20/24. Will proceed with therapeuti c withdrawal from chiro care as tolerated by patient. Cervical s egmental dysfunction 494170584 M99.01 Thoracic s egmental dysfunction 803783477 M99.02 [id number] Chary Hardin PA [facility] s [address] [place] [address] 01/24/2024 09:30:06 01/24/2024 10:24:52 Chronic low back pain 569155236 M54.50 Chronic th oracic back pain [id number] 29137 M54.6 [id number] MICHELE TERRELL DC [place] s [address] [place] [address] 02/04/2024 10:00:35 02/04/2024 11:19:57 Low back pain 985470563 M54.50 Low back pain due to probable disc lesion on the right exacerbate d by extended sitting at desk and [place] lifts recently. Improving as expected via chiro care. Receiving chiro care and HEP from chiro. Referred to PA due to full spine paraspinal hypertonic ity. Referred to PT for L/S stabilizat ion on 01/20/24. Will proceed with therapeuti c withdrawal from chiro care as tolerated by patient. Cervical s egmental dysfunction 635047398 M99.01 Thoracic s egmental dysfunction 890339519 M99.02 [id number] MICHELE TERRELL DC [place] [facility] [address] [place] [address] 02/19/2024 10:01:57 02/19/2024 10:54:25 Low back pain 046965247 M54.50 Low back pain due to probable disc lesion on the right exacerbate d by extended sitting at desk and [place] lifts recently. Improving as expected via chiro care. Receiving chiro care and HEP from chiro. Referred to PA due to full spine paraspinal hypertonic ity. Referred to PT for L/S stabilizat ion on 01/20/24. Will proceed with therapeuti c withdrawal from chiro care as tolerated by patient. Cervical s egmental dysfunction 742649560 M99.01 Thoracic s egmental dysfunction 808332047 M99.02 [id number] CODY MCMAHON s [address] [place] [address] 03/04/2024 09:59:47 03/04/2024 10:26:35 Low back pain 453458341 M54.50 Low back pain due to probable disc lesion on the right exacerbate d by extended sitting at desk and [place] lifts recently. Improving as expected via chiro care. Receiving chiro care and HEP from chiro. Referred to MT due to full spine paraspinal hypertonic ity. Referred to PT for L/S stabilizat ion on 01/20/24. Will proceed with therapeuti c withdrawal from chiro care as tolerated by patient. Cervical s egmental dysfunction 316043698 M99.01 Thoracic s egmental dysfunction 377614688 M99.02 [id number] MICHELE TERRELL [place] [facility] [address] [place] [address] 04/20/2024 09:34:28 04/20/2024 09:58:16 Low back pain 801771940 M54.50 Low back pain due to probable disc lesion on the right exacerbate d by extended sitting at desk and [place] lifts recently. Improving as expected via chiro care. Receiving chiro care and HEP from chiro. Referred to MT due to full spine paraspinal hypertonic ity. Referred to PT for L/S stabilizat ion on 01/20/24. Will proceed with therapeuti c withdrawal from chiro care as tolerated by patient. Cervical s egmental dysfunction 196572240 M99.01 Thoracic s egmental dysfunction 513639790 M99.02 [id number] Chary Hardin [facility] s [address] [place] [address] 04/21/2024 12:31:07 04/21/2024 14:27:58 Chronic back pain 280343789 G89.29 [id number] MICHELE TERRELL [facility] thierry [address] [place] [address] 05/05/2024 09:31:09 05/05/2024 09:55:22 Low back pain 417510837 M54.50 Low back pain due to probable disc lesion on the right exacerbate d by extended sitting at desk and [place] lifts recently. Improving as expected via chiro care. Receiving chiro care and HEP from chiro. Referred to MT due to full spine paraspinal hypertonic ity. Referred to PT for L/S stabilizat ion on 01/20/24. Will proceed with therapeuti c withdrawal from chiro care as tolerated by patient. Cervical s egmental dysfunction 194970849 M99.01 Thoracic s egmental dysfunction 423594872 M99.02 [id number] MICHELE TERRELL DC [facility] [address] [place] [address] 05/21/2024 09:28:31 05/21/2024 09:51:34 Low back pain 957897906 M54.50 Low back pain due to probable disc lesion on the right exacerbate d by extended sitting at desk and [place] lifts recently. Improving as expected via chiro care. Receiving chiro care and HEP from chiro. Referred to MT due to full spine paraspinal hypertonic ity. Referred to PT for L/S stabilizat ion on 01/20/24. Will proceed with therapeuti c withdrawal from chiro care as tolerated by patient. Cervical s egmental dysfunction 243231563 M99.01 Thoracic s egmental dysfunction 777929400 M99.02 [id number] MICHELE TERRELL DC [address] [address] 06/11/2024 09:31:33 06/11/2024 09:55:00 Low back pain 411746970 M54.50 Low back pain due to probable disc lesion on the right exacerbate d by extended sitting at desk and [place] lifts recently. Improving as expected via chiro care. Receiving chiro care and HEP from chiro. Referred to MT due to full spine paraspinal hypertonic ity. Referred to PT for L/S stabilizat ion on 01/20/24. Will proceed with therapeuti c withdrawal from chiro care as tolerated by patient. Cervical s egmental dysfunction 970912674 M99.01 Thoracic s egmental dysfunction 026360605 M99.02 [id number] MICHELE TERRELL DC [facility] [address] [place] [address] 07/02/2024 09:48:03 07/02/2024 11:09:40 Low back pain 335632207 M54.50 Low back pain due to history of probable disc lesion exacerbate d by doing squat thrusts with 100lb on her back 90 times for the first time on 06/26/24. Receiving chiro care and HEP from chiro. Referred to PT and MT for L/S on 01/20/24. Cervical s egmental dysfunction 526428260 M99.01 Thoracic s egmental dysfunction 967951398 M99.02 [id number] MICHELE TERRELL DC [facility] [address] [place] [address] 07/06/2024 14:44:12 07/06/2024 16:43:07 Low back pain 574696173 M54.50 Low back pain due to history of probable disc lesion exacerbate d by doing squat thrusts with 100lb on her back 90 times for the first time on 06/26/24. Receiving chiro care and HEP from chiro. Referred to PT and MT for L/S on 01/20/24. Cervical s egmental dysfunction 544641193 M99.01 Thoracic s egmental dysfunction 571129311 M99.02 Health Concerns Section Related Observation LastModified by Organization Detai ls LastModified Time None Recorded Concern Status LastModified by Organization Details LastModified Time None Recorded Advance Directives Directive None Recorded Payers Encounter Date Sequence Insurance Name Policy Number Policy Arguello Covered Member ID Arguello Member ID Guarantor Name 05/05/2024 1 [email or web address] [id number] Mee Vasquez [place] [id number] Mee Vasquez [place] 05/21/2024 1 [email or web address] [id number] Mee Vasquez [place] [id number] Mee Vasquez [place] 06/11/2024 1 [email or web address] [id number] Mee Vasquez [place] [id number] Mee Vasquez [place] 07/02/2024 1 [facility] [id number] Mee Vasquez [place] [id number] Mee Vasquez [place] 07/06/2024 1 [email or web address] [id number] Mee Vasquez [place] [id number] Mee Vasquez Oh[place]itendra Notes Date Note Type Note Provider Name and Address Organization Details Recorded Time 05/05/2024 text/html Mee presents f or treatment today regarding pain into the lower back. She says that she has been feeling tension near the T/L junction due to her having to sleep with the bed elevated for respiratory issues. She says that this has caused additional back pain. We discussed trying different pillow positioning. [address], [place], [address], [place] [facility] 05/05/2024 09:55:09 05/21/2024 text/html Mee presents f or treatment today regarding pain into the lower back. She says she has been maintaining well through consistent chiro care. Sometimes feels like she needs an adjustment, but is feeling good this week. Just feeling a little lower back pain B/L after sleeping in a hotel. LBP rated as 3/10 today. Says that she has had a really good week. Confident in decreasing visit frequency in the future. [address]LE [address], [place], [address], [place] [facility] 05/21/2024 09:51:28 06/11/2024 text/html Mee presents f or treatment today regarding pain into the lower back. She says she has been maintaining well through consistent chiro care. She says that the mid and lower back regions are tense due to traveling to and staying in a hotel last weekend. She denies having any pain today, however. [address], [place], [address], [place] [facility] 06/11/2024 09:54:55 07/02/2024 text/html Mee presents f or treatment today regarding pain into the lower back. She says that she was doing well after last visit until Saturday. She was doing squat thrusts with 100lb on her back 90 times with her due to her gym having new equipment to try out. She says that it started to become painful right away. She usually uses a belt but did not wear it that day. Now is stiff first thing in the morning and at night. Gotten better since this occurred last Saturday. Has been using a towel for lumbar support and ibuprofen. This has helped. She points along the right side of the lower back to the buttock regions. Had some radiating pain down back of right leg. Pain in lower back is rated as 4/10 today. Was up to 9/10. Denies signs symptoms of KIRILL. Understands to present to ED should these occur. [address], [place], [address], [place] - [facility] 07/02/2024 11:09:35 07/06/2024 text/html Mee presents f or treatment today regarding pain into the lower back. She says that pain has improved significantly SLV. Pain is now off and on instead of constant. She says that pain is not terrible at the time of her appointment today. [address]LE [address], [place], [address], [place] - [facility] 07/06/2024 16:43:01 OBGyn Episode No OBEpisode recorded.
--- OUTSIDE RECORDS SUMMARY | 2024-10-08 16:05 | XMS_ITS | Clinical Summary ---
Author Organization [facility] Address [address] [place] [address]. [place] [address] [place] [address] Care Team Providers Care President Name Role Phone Mai Grier NP Primary Care Provider [phone] Allergies Active Allergy Reactions Criticality Noted Date Comments Nitrofurantoin Hives,Other (see comment) Medium 2020 Prochlorperazine Unknown 01/03/2022 Vanilla Anaphylaxis,Swelling High 03/13/2016 anaphylaxis Medications FLUoxetine (PROZAC) 20 MG capsule Take 1 capsule (20 mg total) by mouth daily. 4 Active busPIRone (BUSPAR) 5 MG tabletIndication s:Generalized anxiety disorder Take 1 tablet (5 mg total) by mouth 2 (two) times daily. 90 tablet 4 Active propranolol (INDERAL) 40 MG tabletIndication s:Anxiety,Hypert ension, unspecified type Take 0.5 tablets (20 mg total) by mouth daily. 90 tablet 4 Active cyclobenzaprine (FLEXERIL) 5 MG tabletIndication s:Acute bilateral low back pain without sciatica Take 1 tablet (5 mg total) by mouth 3 (three) times daily as needed (prn). 30 tablet 5 Active cyclobenzaprine (FLEXERIL) 5 MG tablet Take 1 tablet (5 mg total) by mouth 3 (three) times daily as needed (prn). 4 09/24/19 25 Discontinu ed(Reorder ) Active Problems Problem Noted Date Diagnosed Date Generalized anxiety disorder 03/30/2024 Overview (03/30/2024): Has had increased anxiety after her uncle recently. Increase stressors with dealing with that as well as increased dressers at work. Denies any SI/HI. She currently takes fluoxetine 20 mg daily for which she tolerates well but feels her anxiety is still not very well-controlled. She did have a panic attack a few days ago. She wonders what else she can take with her fluoxetine for generalized anxiety. She tells me that she takes propranolol 20 mg daily for hypertension. Patient also has history of migraine headaches with aura. She states she had been on 40 mg daily however it caused her to have dizzy and lightheadedness so she cut her dose down to 20 mg and tolerates well. Denies SI/HI. Assessment & Plan (03/30/2024 2:08 PM CDT): Shared decision making with different treatment options. Will begin patient on buspirone and adjunct to her fluoxetine 20 mg daily. Discussed how to take and side effects. History of migraine headaches 01/27/2024 Fatigue, unspecified type 01/27/2024 Perimenopausal symptoms 01/27/2024 Anxiety and depression 01/27/2024 Obesity (BMI 35.0-39.9 without comorbidity) 01/14 Resolved Problems Problem Noted Date Diagnosed Date Resolved Date Vitamin D deficiency 01/27/2024 024 Family History Medical History Relation Comments Liver cancer Father Heart Disease Maternal Grandfather Heart Disease Maternal Grandmother Diabetes Mother Heart Disease Mother Heart Disease Paternal Grandfather Brain Aneurysm Paternal Grandmother Relation Status Comments Father Maternal Grandfather Maternal Grandmother Mother Paternal Grandfather Paternal Grandmother Social History Tobacco Use Types Packs/Day Years Used Date Smoking Tobacco: Never Passive Smoke Exposure: Never Smokeless Tobacco: Never Tobacco Cessation:Counseling Given: No Alcohol Use Standard Drinks/Week Comments Yes 0 (1 standard drink = 0.6 oz pur e alcohol) socially PHQ-2 Answer Date Recorded Patient Health Questionnaire-2 Score 0 01/27/2024 Comments No Sex and Gender Information Value Date Recorded Sex Assigned at Not on file Legal Sex Female 10:38 AM CDT Gender Identity Not on file Sexual Orientation Not on file Last Filed Vital Signs Vital Sign Reading Time Taken Comments Blood Pressure 136/80 03/30/2024 1:12 PM CDT Pulse 74 03/30/2024 1:12 PM CDT Temperature 36.7 ??C (98.1 ??F) 03/30/2024 1:12 PM CD T Respiratory Rate 16 03/30/2024 1:12 PM CDT Oxygen Saturation 99% 03/30/2024 1:12 PM CDT Inhaled Oxygen Concentration - - Weight 88.7 kg (195 lb 9.6 oz) 03/30/2024 1:12 P M CDT Height 157.5 cm (5' 2 ) 03/30/2024 1:12 PM CDT Body Mass Index 35.78 03/30/2024 1:12 PM CDT Plan of Treatment Health Maintenance Due Date Last Done Comments Colorectal Cancer Screening Colonoscopy (10 Years) 1976 Hepatitis C 02/04/1994 DTaP, Tdap and Td Vaccines (1 - Tdap) 02/04/1995 Hepatitis B Vaccines (1 of 3 - 19+ 3-dose series) 02/04/1995 COVID-19 Vaccine ( - 2023- season) 2024 Influenza Adult (#1) 2024 Annual Physical 01/26/2025 01/27/2024 PHQ-2 (Physician [place]) 01/26/2025 01/27/2024 Mammogram Screening 07/05/2025 07/05/2023, 07/05/2023, 04/09/2017, Additional history exists Meningococcal B Vaccine Aged Out No l onger eligible based on patient's age to complete this topic Meningococcal Vaccine Aged Out No jess diane eligible based on patient's age to complete this topic Pneumococcal Vaccine: Pediatrics (0 to 5 Years) and At-Risk Patients (6 to 64 Years) Aged Out No longer eligible based on patient's age to complete this topic RSV Immunizations Under 20 Months Aged Out No longer eligible based on patient's age to complete this topic Procedures Procedure Name Priority Date/Time Associated Diagnosis Comments MAMMOGRAM GENERIC (SCAN ORDER) 07/05/2023 from Last 3 Months or Most Recently Relevant to Health Maintenance Results * MAMMOGRAM GENERIC (SCAN ORDER) (07/05/2023) Anatomical Region Laterality Modality Other 07/05/2023 [facility] Scanned SCANNING Final Resu lt from Last 3 Months or Most Recently Relevant to Health Maintenance Insurance [facility] Care Teams President Relationship Specialty Start Date End Date Mai Grier NP [address] [place] [address] PCP - General NURSE PRACTITIONER 01/27/24
--- OUTSIDE RECORDS SUMMARY | 2024-10-08 16:05 | XMS_ITS | Encounter Summary ---
Author Organization [facility] Address [address] [place] [address]. [place] [address] [place] [address] Care Team Providers Care Precinct Commanding Officer Name Role Phone Mai Grier NP Primary Care Provider [phone] Encounter Details Date Type Department Care Team (Late st Contact Info) Description 04/09/2024 brick&mobile Message Enc [facility] Family Medicine - [place] [address] [facility] [address] [place] [phone] Mai Grier NP [address] [place], [place] [id number] Medicine Social History Tobacco Use Types Packs/Day Years Used Date Smoking Tobacco: Never Passive Smoke Exposure: Never Smokeless Tobacco: Never Alcohol Use Standard Drinks/Week Comments Yes 0 (1 standard drink = 0.6 oz pur e alcohol) socially PHQ-2 Answer Date Recorded Patient Health Questionnaire-2 Score 0 01/27/2024 Comments No Sex and Gender Information Value Date Recorded Sex Assigned at Not on file Legal Sex Female 10:38 AM CDT Gender Identity Not on file Sexual Orientation Not on file documented as of this encounter Plan of Treatment Not on file documented as of this encounter Visit Diagnoses Not on filedocumented in this encounter Additional Health Concerns Assessment Noted Time PHQ-9 Depression Total Score: 6 01/27/20 24 3:39 PM CDT documented as of this encounter Care Teams Precinct Commanding Officer Relationship Specialty Start Date End Date Mai Grier NP [address] [place], [place] [address] PCP - General NURSE PRACTITIONER 01/27/24 documented as of this encounter
--- OUTSIDE RECORDS SUMMARY | 2024-10-08 16:06 | XMS_ITS | Clinical Summary ---
Author Organization [facility] Address [address] [place] [address] Care Team Providers Care Laborer Wrecking And Salvaging Name Role Phone Laura Nelson MD Unavailable Tariq Ascencio MD Primary Care Provider Allergies Active Allergy Reactions Criticality Noted Date Comments Nitrofurantoin Hives Medium 09/04/2021 Nitrofurantoin Macrocrystalline Other (See comments) Low 01/03/2022 Prochlorperazine Unknown 01/03/2022 Vanilla Anaphylaxis High 01/03/2022 anaphylaxis Vanilla Extract Flavor Anaphylaxis,Swelling High Medications propranoloL (INDERAL) 40 mg tablet 10/17/2021 Active fluticasone propionate (FLONASE) 50 mcg/actuation nasal spray 09/29/2021 Active SUMAtriptan (IMITREX) 50 mg tablet 05/01/2023 Active cyclobenzaprine (FLEXERIL) 5 mg tablet Take 1 tablet (5 mg total) by mouth 3 (three) times a day as needed 01/21/2024 Active FLUoxetine (PROzac) 20 mg capsule Take 1 capsule (20 mg total) by mouth daily 12/24/2023 Active Active Problems Problem Noted Date Diagnosed Date Vaginal dryness 07/23/2024 Assessment & Plan (07/23/2024 10:21 AM OPERATOR TECHNICIAN): Discussed OTC v. Estradiol options. Pt states she thinks cream will be messy. Pt sent with OTC sample of uberlube and astroglide as well as imvexxy. Reviewed use etc. Pt to call if she desires a Rx to [place] [facility]. Patient verbalizes understanding. Well woman exam with routine gynecological exam 06/12/2023 Assessment & Plan (07/23/2024 8:40 AM OPERATOR TECHNICIAN): The patient was here for her well woman exam. Recommended healthy lifestyle choices including exercise, diet, & multivitamins. Recommend mammograms yearly and monthly self breast exams. Discussed importance of routine screenings with PCP regularly. Assessment & Plan (06/12/2023 8:44 AM CDT): The patient was here for her well woman exam. Recommended healthy lifestyle choices including exercise, diet, & multivitamins. Recommend mammograms yearly and monthly self breast exams. Discussed importance of routine screenings with PCP regularly. Screening for cervical cancer 01/11/2022 Overview (02/11/2022): 01/03/22 - Pap - LGSIL 01/2022 colpo and ECC benign Assessment & Plan (2022 9:13 PM CDT): 01/03/22 - Pap - LGSIL Pap and ECC done Sweet urine odor 01/03/2022 Overview (02/02/2022): 2021 Hemoglobin A1c 5.1 Assessment & Plan (01/03/2022 4:59 PM CDT): Discussed with covid there is a broad spectrum of symptoms people are experiencing. Very logical to think this could be related. Check UA and urine culture today. PCP hasn't done any tests yet. Pt has been there twice with c/o. Pt referred to urologist. Morbid obesity 11/06/2017 Resolved Problems Problem Noted Date Diagnosed Date Resolved Date Routine gynecological examination 01/03/2022 02/02/2022 Assessment & Plan (01/03/2022 4:51 PM CDT): The patient was here for her well woman exam. Recommended healthy diet and exercise. Recommend yearly mammograms, self breast exams monthly and regular colonoscopy screening. Discussed importance of regular visits and cholesterol screening with PCP. Urinary body odor 01/03/2022 01/03/2022 Vaginal odor 01/03/2022 02/02/2022 Assessment & Plan (01/03/2022 4:53 PM CDT): Check BD affirm today. Reviewed possible etiologies. Discussed things to avoid. Pt brought in boric acid she's taking - purchased on [employer]. Discussed boric acid vaginally is good - unsure if this is a good product or not. Encounters Date Type Department Care Team Description 07/23/2024 4:09 PM OPERATOR TECHNICIAN - 07/23/2024 11:59 PM OPERATOR TECHNICIAN Hospital Encounter [id number] [place] [id number] Well woman exam with routine gynecological exam; Encounter for Papanicolaou smear for cervical cancer screening; Screening for human papillomavirus (HPV) Discharge Disposition: Discharge to home or self care 07/23/2024 8:30 AM OPERATOR TECHNICIAN Office Visit [facility] [address] [place] [phone] Nahomi Thorne NP Well woman exam with routine gynecological exam (Primary Dx); Encounter for Papanicolaou smear for cervical cancer screening; Screening for human papillomavirus (HPV); Vaginal dryness 07/23/2024 Orders Only [facility] [address] [place] [address] [address], [place] [phone] Nahomi Thorne NP from Last 3 Months Surgical History Surgery Date Site/Laterality Comments REDUCTION MAMMAPLASTY TUBAL LIGATION Bilateral KNEE ARTHROSCOPY 11/19/2012 Left LASIK LAPAROSCOPIC SUPRACERVICAL HYSTERECTOMY 09/16/2005 - 09/15/2006 Pain / Menorrhagia Medical History Medical History Date Comments ELVIE 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 Urine odor. Body odor. Morbid obesity (HCC) 11/06/2017 Screening for cervical cancer 01/11/2022 - Pap - LGSIL 01/2022 colpo and ECC benign Family History Medical History Relation Name Comments Hypertension Father Liver cancer Father Diabetes Mother Diabetes Other Hypertension Other Liver disease Other Ulcers Other Stroke Son Relation Name Status Comments Father Mother Other Son Social History Tobacco Use Types Packs/Day Years Used Date Smoking Tobacco: Never Smokeless Tobacco: Never Tobacco Cessation:Counseling Given: Not Answered AUDIT-C Answer Date Recorded Q1: How often do you have a drink containing alc ohol? 2-3 times a week 02/02/2022 Average Number of Drinks Not on file 022 Frequency of Binge Drinking Not on file 01/15 Comments No Sex and Gender Information Value Date Recorded Sex Assigned at Not on file Legal Sex Female 7:54 PM OPERATOR TECHNICIAN Gender Identity Not on file Sexual Orientation Not on file Occupation Industry Job Start Date Job End Date Drug Michael Not on file Not on file Not on file Obstetrics History Comments Supracervical Laparoscopic hysterectomy for heavy menses H/o ELVIE I And HPV 01/2022 colpo done for LGSIL... ECC benign Last Filed Vital Signs Vital Sign Reading Time Taken Comments Blood Pressure 120/90 07/23/2024 8:26 AM OPERATOR TECHNICIAN Pulse 79 11/06/2017 1:00 PM OPERATOR TECHNICIAN Temperature - - Respiratory Rate - - Oxygen Saturation 96% 11/06/2017 1:00 PM OPERATOR TECHNICIAN Inhaled Oxygen Concentration - - Weight 93.9 kg (207 lb) 07/23/2024 8:26 AM OPERATOR TECHNICIAN Height 157.5 cm (5' 2 ) 07/23/2024 8:26 AM OPERATOR TECHNICIAN Body Mass Index 37.86 07/23/2024 8:26 AM OPERATOR TECHNICIAN Plan of Treatment Health Maintenance Due Date Last Done Comments Colon Cancer Screening-Colonoscopy 1975 Depression Screening 1975 Hepatitis C Screening 1975 Hepatitis B Screening 02/04/1994 Covid-19 Vaccine ( season) 2024 12/29/2020, 12/01/2020 Influenza Vaccine (#1) 2024 06/19/2021 Breast Cancer Screening-Mammogram 07/05/2024 07/05/2023, 04/09/2017, 02/15/2016 Regular Well Visit/Exam 18-64 07/23/2025 07/23/2024, 06/12/2023, 01/03/2022 DTaP/Tdap/Td Vaccine (2 - Td or Tdap) 01/14/2027 01/14/2017 Cervical Cancer Screening Discontinued 2023, 07/23/2024, 01/03/2022, Additional history exists Pneumococcal vaccine <65 Aged Out No longer eligible based on patient's age to complete this topic Procedures Procedure Name Priority Date/Time Associated Diagnosis Comments THINPREP PROCESSING (MOLECULAR COMPONENT) Routine 07/23/2024 12:00 PM OPERATOR TECHNICIAN Well woman exam with routine gynecological exam Encounter for Papanicolaou smear for cervical cancer screening Screening for human papillomavirus (HPV) HIGH RISK HPV DNA DETECTION WITH GENOTYPING Routine 07/23/2024 12:00 PM OPERATOR TECHNICIAN Well woman exam with routine gynecological exam Encounter for Papanicolaou smear for cervical cancer screening Screening for human papillomavirus (HPV) PAP AND HIGH RISK HPV, REFLEX TO GENOTYPING Routine 07/23/2024 9:43 AM OPERATOR TECHNICIAN SCREENING MAMMOGRAM BILATERAL W EDU W IMPLANTS Schedule Routine, Read Routine (OP Routine) 07/05/2023 2:37 PM CDT Screening mammogram, encounter for from Last 3 Months or Most Recently Relevant to Health Maintenance Results * ThinPrep processing (Molecular component) (07/23/2024 12:00 PM OPERATOR TECHNICIAN) ThinPrep processing (Molecular component) Specimen received for processing. Endocervical 07/23/2024 12:0 0 PM OPERATOR TECHNICIAN 07/23/2024 5:24 PM OPERATOR TECHNICIAN Nahomi Thorne NP LAB BODY FLUIDS AND STOOLS ORD ERABLES Final Result [facility] [address] Department [place] [address] * High Risk HPV DNA Detection with Genotyping (Molecular component) (07/23/2024 12:00 PM OPERATOR TECHNICIAN) HPV HR 16 Not Detected Not Detected HPV HR 18 Not Detected Not Detected [facility] HPV HR Non 16/18 Not Detected Not Detected [facility] Comment: Interpretive Data Nucleic acid amplification for detection of high-risk Human Papilloma virus (HPV) is performed by the [employer] 4800 HPV test, which specifically detects high-risk HPV-16, 18, 31, 33, 35, 39, 45, 51, 52, 56, 58, 59, 66, and 68 genotypes. ??This assay has been approved by the [place] Food and Drug Administration for detection of HPV in cervical specimens collected by a physician using an endocervical brush/spatula or cervical broom and placed in the ThinPrep Pap Test PreservCyt collection containers. ??The performance characteristics of this test have been verified by the [facility]. Correlate with separately reported cytology results, as applicable. Interpretive data last revised 23 Endocervical 07/23/2024 12:0 0 PM OPERATOR TECHNICIAN 07/23/2024 5:24 PM OPERATOR TECHNICIAN Narrative [facility] - 07/29/2024 1:59 AM OPERATOR TECHNICIAN Clinical history and diagnosis->Z01.419 Number of vials->1 Testing type->Screening Last menstrual period (date if known)->Hysterectomy Menstrual status->Post hysterectomy, supracervical Nahomi Thorne NP LAB BODY FLUIDS AND STOOLS ORD ERABLES Final Result [facility] [address] Department [place] [address] * Pap and High Risk HPV and Genotyping (Cytology Component) (07/23/2024 9:43 AM OPERATOR TECHNICIAN) Pap test 07/23/2024 9:43 AM OPERATOR TECHNICIAN 07/24/2024 5:20 PM OPERATOR TECHNICIAN Narrative 08/03/2024 4:16 PM OPERATOR TECHNICIAN EPIC results best viewed via link to PDF [address] ??[address] Tele: ?? Taylor Hernandez MD - It Field Technician CYTOLOGY REPORT Note to Patients: This report may contain a detailed description of human tissue sent by a health care provider to the laboratory for pathologic evaluation. The content of this report is essential for diagnosis and may provide important critical findings. This information may be unfamiliar to patients to review without a medical professional present. It is advised that the patient review this report in the presence of a health care provider who can answer questions and explain the details. Patient Name: ??MEE DOSHIAshvin Address: ??[facility] [place] [place] [place] [address] Gender: ??F : ??1975 (Age: 49) Service: ?? Location: ?? Hospital #: ??[id number] Patient Type: ??[facility] SPECIMEN Taken: ??07/23/2024 Reported: ??08/03/2024 Physician(s): ? VALERI Darnell FINAL DIAGNOSIS: SOURCE OF SPECIMEN ?- ThinPrep Pap and HPV w/ reflex Genotyping: STATEMENT OF ADEQUACY Source: ??Cervical/Endocervical ?- Satisfactory for interpretation ?- Endocervical /Transformation Zone component present ?- Case screened using computer assisted imaging technology and manually re-screened by a fishing guide. ? GENERAL CATEGORIZATION: ?- Negative for intraepithelial lesion or malignancy ? jxm/08/03/2024 16:16Haily Barraza M.S., CT (ASCP) GOLD Adame (ASCP)Report Reviewed and Electronically Signed By ??GOLD Adame (ASCP)Clerical Data Follow A; G0145 DIAGNOSIS COMMENT: ? Ancillary Testing: HPV Genotype 16 ? - ??Not Detected ? Reference Range: ? Not Detected HPV Genotype 18 ? - ??Not Detected ? Reference Range: ? Not Detected HPV High Risk Group (31, 33, 35, 39, 45, 51, 52, 56, 58, 59, 66 and 68) ? - ??Not Detected ? Reference Range: ? Not Detected ? This test was performed using the [employer] 4800 CLINICAL DIAGNOSIS AND HISTORY Menstrual History: Supra-Cervical Hysterectomy This specimen has been rescreened in accordance with the [facility] Laboratory Quality Management Program. REPORT IMAGES AND/OR SCANNED DOCUMENTS ONLY VIEWABLE IN PDF FORMAT The Pap test is a screening test used to aid in the detection of cervical cancer and its precursors. It should not be the sole means by which malignant and premalignant lesions are diagnosed. ??Both false negative and false positive results may occur. ??It also has poor sensitivity for the detection of endometrial lesions and should not be used to evaluate suspected endometrial abnormalities. ??For these reasons it is most important to obtain Pap tests at regular intervals, as recommended by your physician or nurse practitioner. ??Frozen section, operating room consultation, gross examination and dissection, and case sign out may have been performed in part or completely in the following laboratories: [facility], [address] [facility], [place], [place] [address] [place] [address], [address] [place] [address]. Nahomi Thorne NP LAB CYTOLOGY ORDERABLES Final Result * Screening Mammogram Bilateral W Edu W Implants (07/05/2023 2:37 PM CDT) Anatomical Region Laterality Modality Breast Bilateral Mammography Narrative 07/05/2023 2:56 PM CDT Examination: Screening Mammogram Bilateral W Edu W Implants: 07/05/23 Clinical: Screening mammogram, encounter for. Prior Study Comparisons: Comparison was made to the prior available relevant studies at the time of interpretation. Findings: Bilateral No significant masses, malignant type calcifications, skin thickening, nipple retraction, or significant lymphadenopathy is noted in either breast. ??The CAD review showed no significant findings. The breasts have scattered areas of fibroglandular density. The patient will be notified of results by letter. Impression: BI-RADS?? ATLAS category (overall): 2 - Benign ?? There is no mammographic evidence of malignancy. Routine Screening Mammogram in 1 Yr is recommended for bilateral Overall Assessment: 2 - Benign us Self Screening Mammogram IMG MAMMO PROCEDURES Fi nal Result from Last 3 Months or Most Recently Relevant to Health Maintenance Insurance [facility] Care Teams Laborer Wrecking And Salvaging Relationship Specialty Start Date End Date Tariq Ascencio MD [address] [place] [address] PCP - General 07/05/23 Laura Nelson MD [address] [facility] [address] [place] [address] Consulting Physician Obstetrics and Gynecology 01/02/22
--- OUTSIDE RECORDS SUMMARY | 2024-10-08 16:06 | XMS_ITS | Referral Summary ---
Author Organization [facility] Address [facility] [place] [address] Care Team Providers Care Complaint Coordinator Name Role Phone Laura Nelson MD Unavailable Tariq Ascencio MD Primary Care Provider Encounters Date Type Department Care Team Description 07/23/2024 Orders Only [facility] [address] Nahomi Thorne NP 07/23/2024 4:09 PM CAUSTIC ROOM OPERATOR - 07/23/2024 11:59 PM CAUSTIC ROOM OPERATOR Hospital Encounter [id number] [place] [address] Well woman exam with routine gynecological exam; Encounter for Papanicolaou smear for cervical cancer screening; Screening for human papillomavirus (HPV) Discharge Disposition: Discharge to home or self care 07/23/2024 8:30 AM CAUSTIC ROOM OPERATOR Office Visit [facility] [address] [address] Nahomi Thorne NP Well woman exam with routine gynecological exam (Primary Dx); Encounter for Papanicolaou smear for cervical cancer screening; Screening for human papillomavirus (HPV); Vaginal dryness from Last 3 Months Allergies Active Allergy Reactions Criticality Noted Date [...] 07/23/2024 Assessment & Plan (07/23/2024 10:21 AM CAUSTIC ROOM OPERATOR): Discussed OTC v. Estradiol options. Pt states she thinks cream will be messy. Pt sent with OTC sample of uberlube and astroglide as well as imvexxy. Reviewed use etc. Pt to call if she desires a Rx to [place] pharmacy. Patient verbalizes understanding. Well woman exam with routine gynecological exam 06/12/2023 Assessment & Plan (07/23/2024 8:40 AM CAUSTIC ROOM OPERATOR): The patient was here for her well [...] boric acid she's taking - purchased on [employer]. Discussed boric acid vaginally is good - unsure if this is a good product or not. Social History Tobacco Use Types Packs/Day Years [...] on file Legal Sex Female 7:54 PM CAUSTIC ROOM OPERATOR Gender Identity Not on file Sexual Orientation Not on file Occupation Industry Job Start Date Job End Date Drug Michael Not on file Not on file Not on file Last Filed Vital Signs Vital Sign Reading Time Taken Comments Blood Pressure 120/90 07/23/2024 8:26 AM CAUSTIC ROOM OPERATOR Pulse 79 11/06/2017 1:00 PM CAUSTIC ROOM OPERATOR Temperature - - Respiratory Rate - - Oxygen Saturation 96% 11/06/2017 1:00 PM CAUSTIC ROOM OPERATOR Inhaled Oxygen Concentration - - Weight 93.9 kg (207 lb) 07/23/2024 8:26 AM CAUSTIC ROOM OPERATOR Height 157.5 cm (5' 2 ) 07/23/2024 8:26 AM CAUSTIC ROOM OPERATOR Body Mass Index 37.86 07/23/2024 8:26 AM CAUSTIC ROOM OPERATOR Plan of Treatment Not on file Procedures Procedure Name Priority Date/Time Associated Diagnosis Comments THINPREP PROCESSING (MOLECULAR COMPONENT) Routine 07/23/2024 12:00 PM CAUSTIC ROOM OPERATOR Well woman exam with routine gynecological exam Encounter for Papanicolaou smear for cervical cancer screening Screening for human papillomavirus (HPV) HIGH RISK HPV DNA DETECTION WITH GENOTYPING Routine 07/23/2024 12:00 PM CAUSTIC ROOM OPERATOR Well woman exam with routine gynecological exam Encounter for Papanicolaou smear for cervical cancer screening Screening for human papillomavirus (HPV) PAP AND HIGH RISK HPV, REFLEX TO GENOTYPING Routine 07/23/2024 9:43 AM CAUSTIC ROOM OPERATOR SCREENING MAMMOGRAM BILATERAL W EDU W IMPLANTS Schedule Routine, Read Routine (OP Routine) 07/05/2023 2:37 PM CDT Screening mammogram, encounter for from Last 3 Months or Most Recently Relevant to Health Maintenance Results * ThinPrep processing (Molecular component) (07/23/2024 12:00 PM CAUSTIC ROOM OPERATOR) ThinPrep processing (Molecular component) Specimen received for processing. Endocervical 07/23/2024 12:0 0 PM CAUSTIC ROOM OPERATOR 07/23/2024 5:24 PM CAUSTIC ROOM OPERATOR Nahomi Thorne NP LAB BODY FLUIDS AND STOOLS ORD ERABLES Final Result [facility] [address] Department [place] [address] * High Risk HPV DNA Detection with Genotyping (Molecular component) (07/23/2024 12:00 PM CAUSTIC ROOM OPERATOR) HPV HR 16 Not Detected Not Detected HPV HR 18 Not Detected Not Detected [facility] HPV HR Non 16/18 Not Detected Not Detected [facility] Comment: Interpretive Data Nucleic acid amplification for [...] this test have been verified by the [facility]. Correlate with separately reported cytology results, as applicable. Interpretive data last revised 23 Endocervical 07/23/2024 12:0 0 PM CAUSTIC ROOM OPERATOR 07/23/2024 5:24 PM CAUSTIC ROOM OPERATOR Narrative [facility] - 07/29/2024 1:59 AM CAUSTIC ROOM OPERATOR Clinical history and diagnosis->Z01.419 Number of vials->1 Testing type->Screening Last menstrual period (date if known)->Hysterectomy Menstrual status->Post hysterectomy, supracervical Nahomi Thorne NP LAB BODY FLUIDS AND STOOLS ORD ERABLES Final Result Performing Organization Address City/[facility]/ZIP Co de Phone Number [facility] [address] [place] [address] * Pap and High Risk HPV and Genotyping (Cytology Component) (07/23/2024 9:43 AM CAUSTIC ROOM OPERATOR) Pap test 07/23/2024 9:43 AM CAUSTIC ROOM OPERATOR 07/24/2024 5:20 PM CAUSTIC ROOM OPERATOR Narrative 08/03/2024 4:16 PM CAUSTIC ROOM OPERATOR EPIC results best viewed via link to PDF [address] ??[address] Tele: ?? Taylor Hernandez MD - Rivet Hole Puncher CYTOLOGY REPORT Note to Patients: This report [...] the details. Patient Name: ??MEE DOSHIAshvin Address: ??[address] [place] [place], [place] [address] Gender: ??F : ??1975 (Age: 49) Service: ?? Location: ?? Hospital #: ??[id number] Patient Type: [facility] [place]CIMEN Taken: ??07/23/2024 Reported: ??08/03/2024 Physician(s): ? VALERI Darnell FINAL DIAGNOSIS: SOURCE OF SPECIMEN ?- ThinPrep Pap and HPV w/ reflex Genotyping: STATEMENT OF ADEQUACY Source: ??Cervical/Endocervical ?- Satisfactory for interpretation ?- Endocervical /Transformation Zone component present ?- Case screened using computer assisted imaging technology and manually re-screened by a dough sheeter. ? GENERAL CATEGORIZATION: ?- Negative for intraepithelial [...] ? This test was performed using the [employer] 4800 CLINICAL DIAGNOSIS AND HISTORY Menstrual History: Supra-Cervical Hysterectomy This specimen has been rescreened in accordance with the [facility] Laboratory Quality Management Program. REPORT IMAGES [...] part or completely in the following laboratories: [facility], [facility], [place], [place] [address] [place] [address], [address] [place] [address]. [place] Nahomi Thorne NP LAB CYTOLOGY ORDERABLES Final [...] Most Recently Relevant to Health Maintenance Insurance [facility] Address: [address] [address] [place] [address] [facility]/PPO Address: [address] [address] [place] [address] [facility]PPO Address: [address] [address] [place] [address] Care Teams Complaint Coordinator Relationship Specialty Start Date End Date Tariq Ascencio MD [address] [place] [address] PCP - General 07/05/23 Laura Nelson MD [address] [place] [address] Consulting Physician Obstetrics and Gynecology 01/02/22
== END 2024-10-06 08:55 | disposition home or self-care (01) ==
PROVIDERS: Emergency Provider Nurse Practitioner Family; PCP Nurse Practitioner
DX: J02.9 Acute pharyngitis, unspecified (principal); J06.9 Acute upper respiratory infection, unspecified; Z20.822 Contact with and (suspected) exposure to COVID-19; I10 Essential (primary) hypertension
CPT/HCPCS: 87081; 87426; 87804; 87880; 99203; G0463